=== PATIENT | male | born 1990 | race Caucasian/White ===

== ENCOUNTER 2019-01-27 21:57 | Emergency (ER) | payer SELFPAY ==
[~2019-01-27] VITALS: Ht 172.7 cm; Wt 78.5 kg
[2019-01-27 22:01] VITALS: Ht 172.7 cm; Wt 78.5 kg
[2019-01-28] MEDS ORDERED: ACETAMINOPHEN 325 MG TAB PO ONE (02:30)
[2019-01-28] MEDS ORDERED: IBUP-1542 PO (04:15)
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
[2019-01-28 04:36] VITALS: BP 140/86; PULSE 65; RESP 16
== END 2019-01-28 04:36 | disposition home or self-care (01) ==
LOC: FTE 21:57
DX: M25.522 Pain in left elbow (principal); M54.2 Cervicalgia; M25.512 Pain in left shoulder; M25.532 Pain in left wrist
CPT/HCPCS: 72040; 72100